=== PATIENT | female | born 1990 | race Caucasian/White ===

== ENCOUNTER 2020-12-17 20:27 | Observation (INO) | payer OTHER, SELFPAY ==
[2020-12-17 21:22] VITALS: BP 142/94; PULSE 110
[2020-12-17 21:30] VITALS: BP 138/88; PULSE 112
[2020-12-17] MEDS: ONDANSETRON INJ 4 MG/2 ML VIAL IV PUSH (21:39)
[2020-12-17] MEDS: LACTATED RINGERS 1,000 ML 125 ML IV CONT (21:39)
[2020-12-17] MEDS: AMPICILLIN 2 GM/NS 100 ML 2 GM/100 ML BAG IVPB (21:41)
[2020-12-17 21:58] LABS: Basophils Percent Auto 0.2 % (0.2-1.2); Eosinophils Absolute Auto 0.1 K/mm3 (0-0.3); Eosinophils Percent Auto 0.4 % (0-4.4); Hematocrit 37.6 % (37.0-47.0); Immature Granulocyte Absolute 0.07 K/mm3 (0.00-0.031); Immature Granulocyte Percent A 0.5 % (0-0.5); Lymphocytes Absolute Auto 2.02 K/mm3 (0.9-3.2); Lymphocytes Percent Auto 14.6 % (18.3-44.2); Mean Corpuscular HGB Conc 34.6 g/dl (32-36); Mean Corpuscular Hemoglobin 30.7 pg (26-34); Mean Corpuscular Volume 88.7 fl (80-100); Mean Platelet Volume 10.5 fl (7.4-10.4); Monocytes Absolute Auto 0.9 K/mm3 (0.1-0.6); Monocytes Percent Auto 6.1 % (2.6-8.5); Neutrophils Absolute Auto 10.8 K/mm3 (1.3-6.7); Neutrophils Percent Auto 78.2 % (45.5-73.1); Platelet Count Result 178 k/mm3 (150-375); Red Blood Count 4.24 M/mm3 (4.2-5.4); White Blood Count 13.8 K/mm3 (4.5-10.0)
[2020-12-17 22:28] LABS: Alanine Aminotransferase 18 U/L (4-35); Albumin Level 4.1 g/dL (3.5-5.1); Alkaline Phosphatase 172 U/L (38-126); Anion Gap 11 mmol/L (8-16); Aspartate Amino Transferase 27 U/L (14-36); Bilirubin,Total 0.4 mg/dL (0.2-1.3); Blood Urea Nitrogen 6 mg/dL (7-17); Calcium 9.2 mg/dL (8.4-10.2); Carbon Dioxide 18 mmol/L (22-30); Chloride 103 mmol/L (98-107); Estimated Glomerular Filt Rate > 60; Glucose 141 mg/dL (65-105); Potassium 3.6 mmol/L (3.4-5.0); Sodium 132 mmol/L (137-145); Uric Acid 4.9 mg/dL (2.5-7.5)
--- NOTE | 2020-12-17 22:35 | LDADM ---
This patient, Hortencia Carbajal, was admitted to Labor/Delivery/Recovery 108 on 12/17/20 at 20:27. Plans for labor, pain management and were discussed with patient. Patient/family oriented to hospital policies and general routines including ID bracelet, bed and alarms, visiting hours, pain management, procedures, bathroom and other care routines, personal items, smoking policy, room service/diet and guest tray routines, security routines, and visiting hours. Patient/Family are encouraged to report perceived risks to care and to ask questions if they do not understand what they are told or what they should do. See OBIX for further documentation.
[2020-12-17 22:43] VITALS: BP 130/88; PULSE 115
[2020-12-17 22:46] VITALS: TEMP 36.4
[2020-12-18] VITALS (7 sets, daily range): BP systolic 94–137; BP diastolic 63–91; PULSE 78–95; TEMP 36.3
[2020-12-18] MEDS: AMPICILLIN 1 GM/NS 50 ML 1 GM/50 ML BAG IVPB ×3 (01:19→11:39)
--- NOTE | 2020-12-18 07:53 | WPDANESEPP ---
Anes - Eval Pre Procedure Procedure: labor epidural Date/Time: 12/18/20 07:53 Surgeon: chris Preop Diagnosis: pain during labor Pre Op Diagnosis: CTX Patient Data Age: 30 Gender: F Height: Weight: Last Vital Signs Temp 36.3 C L 12/18/20 06:54 Pulse 82 12/18/20 07:30 BP 124/83 12/18/20 07:30 Allergies Allergy/AdvReac Type Severity Reaction Status Date / Time No Known Allergies Allergy Verified 12/17/20 12:38 Home Medications Medication Instructions Recorded Confirmed Type prenat.vits,jimmy,aqx-qmvi-oykop 1 tablet PO DAILY 12/17/20 12/17/20 History [ #2] Laboratory Tests 12/17/20 12/17/20 12/17/20 21:50 21:50 21:50 WBC 13.8 K/mm3 H K/mm3 (4.5-10.0) RBC 4.24 M/mm3 M/mm3 (4.2-5.4) Hgb 13.0 g/dL g/dL (12.0-15.0) Hct 37.6 % % (37.0-47.0) MCV 88.7 fl fl (80-100) MCH 30.7 pg pg (26-34) MCHC 34.6 g/dl g/dl (32-36) RDW 13.0 % % (11.5-14.5) Plt Count 178 k/mm3 k/mm3 (150-375) MPV 10.5 fl H fl (7.4-10.4) Immature Gran % (Auto) 0.5 % % (0-0.5) Neut % (Auto) 78.2 % H % (45.5-73.1) Lymph % (Auto) 14.6 % L % (18.3-44.2) [facility] % (Auto) 6.1 % % (2.6-8.5) Eos % (Auto) 0.4 % % (0-4.4) Baso % (Auto) 0.2 % % (0.2-1.2) Lymph # (Auto) 2.02 K/mm3 K/mm3 (0.9-3.2) [facility] # (Auto) 0.9 K/mm3 H K/mm3 (0.1-0.6) Eos # (Auto) 0.1 K/mm3 K/mm3 (0-0.3) Baso # (Auto) 0.0 K/mm3 K/mm3 (0.0-0.1) Abs Immat Gran (auto) 0.07 K/mm3 H K/mm3 (0.00-0.031) Absolute Neuts (auto) 10.8 K/mm3 H K/mm3 (1.3-6.7) Absolute Nucleated RBC 0.0 K/mm3 K/mm3 (0.0-0.012) Nucleated RBC % 0.0 % % (0.0-0.2) Sodium Potassium Chloride Carbon Dioxide Anion Gap BUN Creatinine Estim Creat Clear Calc Estimated GFR Glucose Uric Acid Cancelled Calcium Total Bilirubin AST ALT Alkaline Phosphatase Total Protein Albumin RPR Pending Blood Type Antibody Screen 12/17/20 12/17/20 21:50 21:50 WBC RBC Hgb Hct MCV MCH MCHC RDW Plt Count MPV Immature Gran % (Auto) Neut % (Auto) Lymph % (Auto) [facility] % (Auto) Eos % (Auto) Baso % (Auto) Lymph # (Auto) [facility] # (Auto) Eos # (Auto) Baso # (Auto) Abs Immat Gran (auto) Absolute Neuts (auto) Absolute Nucleated RBC Nucleated RBC % Sodium 132 mmol/L L mmol/L (137-145) Potassium 3.6 mmol/L mmol/L (3.4-5.0) Chloride 103 mmol/L mmol/L (98-107) Carbon Dioxide 18 mmol/L L mmol/L (22-30) Anion Gap 11 mmol/L mmol/L (8-16) BUN 6 mg/dL L mg/dL (7-17) Creatinine 0.50 mg/dL L mg/dL (0.7-1.0) Estim Creat Clear Calc Not Reportable Estimated GFR > 60 (59 - ) Glucose 141 mg/dL H mg/dL (65-105) Uric Acid 4.9 mg/dL mg/dL (2.5-7.5) Calcium 9.2 mg/dL mg/dL (8.4-10.2) Total Bilirubin 0.4 mg/dL mg/dL (0.2-1.3) AST 27 U/L U/L (14-36) ALT 18 U/L U/L (4-35) Alkaline Phosphatase 172 U/L H U/L (38-126) Total Protein 7.0 g/dL g/dL (6.3-8.2) Albumin 4.1 g/dL g/dL (3.5-5.1) RPR Blood Type A Positive Antibody Screen Negative Patient hx anesthesia problems: none Family hx anesthesia problems: none PMFSH Past Medical History Medical History (Updated 12/18/20 @ 07:54 by Destinee Irvin CRNA)
[2020-12-18 10:48] LABS: Rapid Plasma Reagin Non-Reactive (NonReactive)
--- NOTE | 2020-12-18 12:36 | WPDOBADMIT ---
Obstetrics - Admit Note Admission Note: record reviewed. Additions to the history and/or subsequent changes in the physical findings follow. 30 y/o G1 at 36 2/7 weeks here with contractions. Cervix was 1 cm dilated in office yesterday. She had an increase in contractions and came to L&D last night. Cervix changed to 3.5 and she was given ampicillin for GBS unknown status in the . Contractions have decreased subsequently and her cervix has not changed further. AVSS NST reactive TOCO: contractions irregularly now ABD soft, nontender, gravid, vertex EXT nontender Cervix 3-4/50/-2, unchanged. A: IUP at 36 2/7 weeks, not in active labor. P: Home with labor precautions. F/u next week in office.
== END 2020-12-18 13:06 | disposition home or self-care (01) ==
PROVIDERS: Admitting Provider Obstetrics & Gynecology; Visit Provider Obstetrics & Gynecology
DX: O47.03 False labor before 37 completed weeks of gestation, third trimester (principal); Z3A.36 36 weeks gestation of pregnancy
CPT/HCPCS: 36415; 80053; 84550; 85025; 86592; 86850; 86900; 86901; 96361; 96365; 96375; G0378; G0379; J0290; J2405; J7120

== ENCOUNTER 2021-01-05 12:18 | Observation (INO) | payer OTHER, SELFPAY ==
[2021-01-05] VITALS (29 sets, daily range): BP systolic 123–139; BP diastolic 80–109; PULSE 77–141; O2SAT 94–100; BMI 25.0
--- NOTE | 2021-01-05 12:18 | OBADM ---
This patient, Hortencia Carbajal, admitted to the OB room Labor/Delivery/Recovery 107 for observation. Patient/family oriented to hospital policies and general routines including ID bracelet, bed and alarms, visiting hours, pain management, procedures, bathroom and other care routines, personal items, smoking policy, room service/diet, and visiting hours. Patient/Family are encouraged to report perceived risks to care and to ask questions if they do not understand what they are told or what they should do.
[2021-01-05 13:22] LABS: Basophils Percent Auto 0.2 % (0.2-1.2); Eosinophils Percent Auto 0.3 % (0-4.4); Hematocrit 38.8 % (37.0-47.0); Hemoglobin 13.7 g/dL (12.0-15.0); Immature Granulocyte Absolute 0.07 K/mm3 (0.00-0.031); Immature Granulocyte Percent A 0.6 % (0-0.5); Lymphocytes Absolute Auto 1.72 K/mm3 (0.9-3.2); Lymphocytes Percent Auto 13.7 % (18.3-44.2); Mean Corpuscular HGB Conc 35.3 g/dl (32-36); Mean Corpuscular Hemoglobin 30.9 pg (26-34); Mean Corpuscular Volume 87.4 fl (80-100); Mean Platelet Volume 10.7 fl (7.4-10.4); Monocytes Absolute Auto 0.7 K/mm3 (0.1-0.6); Monocytes Percent Auto 5.6 % (2.6-8.5); Neutrophils Percent Auto 79.6 % (45.5-73.1); Platelet Count Result 180 k/mm3 (150-375); Red Blood Count 4.44 M/mm3 (4.2-5.4); White Blood Count 12.5 K/mm3 (4.5-10.0)
[2021-01-05 13:27] LABS: Creatinine Urine 41.7 mg/dL; Total Protein Urine Random 13 mg/dL; Ur Ttl Prot Creatinine Ratio 0.31 mg/mg (0-0.20)
[2021-01-05 13:28] LABS: Add Urine Microscopic? YES; Appearance Urine Clear (Clear); Bacteria Urine Trace /hpf; Bilirubin Urine Negative (Negative); Blood Urine Negative (Negative); Color Urine Straw (Yellow); Glucose Urine UA Negative (Negative); Ketones Urine Trace mg/dL (Negative); Leukocyte Esterase Ur Negative LEU/UL (NEGATIVE); Mucus Urine Rare /lpf; Nitrate Urine Negative (Negative); Protein Urine Negative (Negative); RBC Urine 0-2 /hpf (0-2); Specific Grav Ur 1.008 (1.001-1.035); Urobilinogen Urine Negative mg/dL (<2.0); WBC Urine 0-3 /hpf (0-3)
[2021-01-05 13:34] LABS: Alanine Aminotransferase 14 U/L (4-35); Albumin Level 4.1 g/dL (3.5-5.1); Alkaline Phosphatase 247 U/L (38-126); Anion Gap 11 mmol/L (8-16); Aspartate Amino Transferase 24 U/L (14-36); Bilirubin,Total 0.3 mg/dL (0.2-1.3); Blood Urea Nitrogen 9 mg/dL (7-17); Carbon Dioxide 19 mmol/L (22-30); Chloride 103 mmol/L (98-107); Estimated Glomerular Filt Rate > 60; Glucose 105 mg/dL (65-105); Potassium 4.1 mmol/L (3.4-5.0); Sodium 133 mmol/L (137-145); Uric Acid 5.8 mg/dL (2.5-7.5)
[2021-01-05] MEDS: ACETAMINOPHEN 500 MG TABLET 1000 MG PO (13:59)
--- NOTE | 2021-01-07 07:56 | PM.OBTRLD ---
OB - Triage/Final Diagnosis Visit Information Date of evaluation: 01/05/21 Reason for evaluation: threatened labor Comments/Additional reasons for admission: I have assessed the risk for this patient, Hortencia Carbajal, and determined that she would benefit from observation care. Evaluation Laboratory results: Laboratory Tests 01/05/21 01/05/21 01/05/21 13:04 13:04 13:04 WBC 12.5 H RBC 4.44 Hgb 13.7 Hct 38.8 MCV 87.4 MCH 30.9 MCHC 35.3 RDW 13.0 Plt Count 180 MPV 10.7 H Immature Gran % (Auto) 0.6 H Neut % (Auto) 79.6 H Lymph % (Auto) 13.7 L [place] % (Auto) 5.6 Eos % (Auto) 0.3 Baso % (Auto) 0.2 Lymph # (Auto) 1.72 [place] # (Auto) 0.7 H Eos # (Auto) 0.0 Baso # (Auto) 0.0 Abs Immat Gran (auto) 0.07 H Absolute Neuts (auto) 10.0 H Absolute Nucleated RBC 0.0 Nucleated RBC % 0.0 Sodium 133 L Potassium 4.1 Chloride 103 Carbon Dioxide 19 L Anion Gap 11 BUN 9 Creatinine 0.60 L Estim Creat Clear Calc Not Reportable Estimated GFR > 60 Glucose 105 Uric Acid 5.8 Calcium 9.0 Total Bilirubin 0.3 AST 24 ALT 14 Alkaline Phosphatase 247 H Total Protein 7.0 Albumin 4.1 Urine Color Urine Appearance Urine pH Ur Specific [place] Urine Protein Urine Glucose (UA) Urine Ketones Ur Blood (Man) Urine Nitrate Urine Bilirubin Urine Urobilinogen Ur Leukocyte Esterase Urine RBC Urine WBC Urine Bacteria Urine Mucus U Random Total Protein 13 Urine Creatinine 41.7 Protein/Creat Ratio 2 0.31 H 01/05/21 13:12 WBC RBC Hgb Hct MCV MCH MCHC RDW Plt Count MPV Immature Gran % (Auto) Neut % (Auto) Lymph % (Auto) [place] % (Auto) Eos % (Auto) Baso % (Auto) Lymph # (Auto) [place] # (Auto) Eos # (Auto) Baso # (Auto) Abs Immat Gran (auto) Absolute Neuts (auto) Absolute Nucleated RBC Nucleated RBC % Sodium Potassium Chloride Carbon Dioxide Anion Gap BUN Creatinine Estim Creat Clear Calc Estimated GFR Glucose Uric Acid Calcium Total Bilirubin AST ALT Alkaline Phosphatase Total Protein Albumin Urine Color Straw Urine Appearance Clear Urine pH 6.0 Ur Specific [place] 1.008 Urine Protein Negative Urine Glucose (UA) Negative Urine Ketones Trace Ur Blood (Man) Negative Urine Nitrate Negative Urine Bilirubin Negative Urine Urobilinogen Negative Ur Leukocyte Esterase Negative Urine RBC 0-2 Urine WBC 0-3 Urine Bacteria Trace Urine Mucus Rare U Random Total Protein Urine Creatinine Protein/Creat Ratio 2
== END 2021-01-05 14:55 | disposition home or self-care (01) ==
PROVIDERS: Admitting Provider Student in an Organized Health Care Education/Training Program; Visit Provider Student in an Organized Health Care Education/Training Program
DX: O47.1 False labor at or after 37 completed weeks of gestation (principal); Z3A.38 38 weeks gestation of pregnancy
CPT/HCPCS: 36415; 80053; 81001; 82570; 84156; 84550; 85025; 87086; A9270; G0378; G0379

== ENCOUNTER 2021-01-09 21:30 | Inpatient (IN) | payer OTHER, SELFPAY ==
[2021-01-09 22:00] VITALS: BP 124/81; PULSE 87; TEMP 36.8
[2021-01-09 22:33] LABS: Basophils Percent Auto 0.2 % (0.2-1.2); Eosinophils Absolute Auto 0.1 K/mm3 (0-0.3); Eosinophils Percent Auto 0.6 % (0-4.4); Hematocrit 34.1 % (37.0-47.0); Hemoglobin 11.8 g/dL (12.0-15.0); Immature Granulocyte Absolute 0.03 K/mm3 (0.00-0.031); Immature Granulocyte Percent A 0.3 % (0-0.5); Lymphocytes Percent Auto 20.8 % (18.3-44.2); Mean Corpuscular HGB Conc 34.6 g/dl (32-36); Mean Corpuscular Hemoglobin 29.9 pg (26-34); Mean Corpuscular Volume 86.3 fl (80-100); Mean Platelet Volume 10.7 fl (7.4-10.4); Monocytes Absolute Auto 0.7 K/mm3 (0.1-0.6); Monocytes Percent Auto 6.6 % (2.6-8.5); Neutrophils Absolute Auto 7.2 K/mm3 (1.3-6.7); Neutrophils Percent Auto 71.5 % (45.5-73.1); Platelet Count Result 162 k/mm3 (150-375); Red Blood Count 3.95 M/mm3 (4.2-5.4); Red Cell Distribution Width 12.7 % (11.5-14.5); White Blood Count 10.1 K/mm3 (4.5-10.0)
[2021-01-09 22:34] VITALS: BMI 25.7
--- NOTE | 2021-01-09 22:35 | LDADM ---
This patient, Hortencia Carbajal, was admitted to Labor/Delivery/Recovery 107 on 01/09/21 at 21:30. Plans for labor, pain management and were discussed with patient. Patient/family oriented to hospital policies and general routines including ID bracelet, bed and alarms, visiting hours, pain management, procedures, bathroom and other care routines, personal items, smoking policy, room service/diet and guest tray routines, security routines, and visiting hours. Patient/Family are encouraged to report perceived risks to care and to ask questions if they do not understand what they are told or what they should do. See OBIX for further documentation.
[2021-01-09 22:49] LABS: Alanine Aminotransferase 12 U/L (4-35); Albumin Level 3.5 g/dL (3.5-5.1); Alkaline Phosphatase 213 U/L (38-126); Anion Gap 7 mmol/L (8-16); Aspartate Amino Transferase 24 U/L (14-36); Bilirubin,Total 0.2 mg/dL (0.2-1.3); Blood Urea Nitrogen 9 mg/dL (7-17); Calcium 8.8 mg/dL (8.4-10.2); Carbon Dioxide 21 mmol/L (22-30); Chloride 105 mmol/L (98-107); Estimated CRCL calculation 107 ml/min; Estimated Glomerular Filt Rate > 60; Glucose 126 mg/dL (65-105); Potassium 3.6 mmol/L (3.4-5.0); Sodium 133 mmol/L (137-145)
[2021-01-09 23:22] LABS: Uric Acid 6.2 mg/dL (2.5-7.5)
[2021-01-09 23:30] VITALS: BP 136/90; PULSE 79; TEMP 36.6
[2021-01-10] VITALS (132 sets, daily range): BP systolic 100–141; BP diastolic 50–114; PULSE 54–105; RESP 15–18; TEMP 36.3–36.9; O2SAT 84–100
[2021-01-10] MEDS: fentaNYL CITRATE INJ (*CRX) 100 MCG/2 ML VIAL 50 MCG IV PUSH (02:46)
[2021-01-10] MEDS: LACTATED RINGERS 1,000 ML 125 ML IV CONT ×3 (02:49→05:29)
--- NOTE | 2021-01-10 03:24 | WPDANESEPPF ---
Anes - Initial Pre Proc Eval Procedure: labor epidural Date/Time: 01/10/21 03:24 Surgeon: Franc Nelson MD Pre Op Diagnosis: labor pain Pre Op Diagnosis: Leaking Patient Data Age: 30 Gender: F Height: 1.65 m Weight: 70 kg Last Vital Signs Temp 36.6 C 01/10/21 01:30 Pulse 77 01/10/21 03:22 BP 115/84 01/10/21 03:22 Pulse Ox 100 01/10/21 03:23 Allergies Allergy/AdvReac Type Severity Reaction Status Date / Time No Known Allergies Allergy Verified 12/17/20 12:38 Home Medications Medication Instructions Recorded Confirmed Type prenat.vits,jimmy,[id number] 1 tablet PO DAILY 12/17/20 01/09/21 History Laboratory Tests 01/09/21 01/09/21 01/09/21 22:19 22:19 22:19 WBC 10.1 K/mm3 H K/mm3 (4.5-10.0) RBC 3.95 M/mm3 L M/mm3 (4.2-5.4) Hgb 11.8 g/dL L g/dL (12.0-15.0) Hct 34.1 % L % (37.0-47.0) MCV 86.3 fl fl (80-100) MCH 29.9 pg pg (26-34) MCHC 34.6 g/dl g/dl (32-36) RDW 12.7 % % (11.5-14.5) Plt Count 162 k/mm3 k/mm3 (150-375) MPV 10.7 fl H fl (7.4-10.4) Immature Gran % (Auto) 0.3 % % (0-0.5) Neut % (Auto) 71.5 % % (45.5-73.1) Lymph % (Auto) 20.8 % % (18.3-44.2) [place] % (Auto) 6.6 % % (2.6-8.5) Eos % (Auto) 0.6 % % (0-4.4) Baso % (Auto) 0.2 % % (0.2-1.2) Lymph # (Auto) 2.10 K/mm3 K/mm3 (0.9-3.2) [place] # (Auto) 0.7 K/mm3 H K/mm3 (0.1-0.6) Eos # (Auto) 0.1 K/mm3 K/mm3 (0-0.3) Baso # (Auto) 0.0 K/mm3 K/mm3 (0.0-0.1) Abs Immat Gran (auto) 0.03 K/mm3 K/mm3 (0.00-0.031) Absolute Neuts (auto) 7.2 K/mm3 H K/mm3 (1.3-6.7) Absolute Nucleated RBC 0.0 K/mm3 K/mm3 (0.0-0.012) Nucleated RBC % 0.0 % % (0.0-0.2) Sodium Potassium Chloride Carbon Dioxide Anion Gap BUN Creatinine Estim Creat Clear Calc Estimated GFR Glucose Uric Acid 6.2 mg/dL mg/dL (2.5-7.5) Calcium Total Bilirubin AST ALT Alkaline Phosphatase Total Protein Albumin RPR Pending Blood Type Antibody Screen 01/09/21 01/09/21 22:19 22:19 WBC RBC Hgb Hct MCV MCH MCHC RDW Plt Count MPV Immature Gran % (Auto) Neut % (Auto) Lymph % (Auto) [place] % (Auto) Eos % (Auto) Baso % (Auto) Lymph # (Auto) [place] # (Auto) Eos # (Auto) Baso # (Auto) Abs Immat Gran (auto) Absolute Neuts (auto) Absolute Nucleated RBC Nucleated RBC % Sodium 133 mmol/L L mmol/L (137-145) Potassium 3.6 mmol/L mmol/L (3.4-5.0) Chloride 105 mmol/L mmol/L (98-107) Carbon Dioxide 21 mmol/L L mmol/L (22-30) Anion Gap 7 mmol/L L mmol/L (8-16) BUN 9 mg/dL mg/dL (7-17) Creatinine 0.60 mg/dL L mg/dL (0.7-1.0) Estim Creat Clear Calc 107 ml/min ml/min Estimated GFR > 60 (59 - ) Glucose 126 mg/dL H mg/dL (65-105) Uric Acid Calcium 8.8 mg/dL mg/dL (8.4-10.2) Total Bilirubin 0.2 mg/dL mg/dL (0.2-1.3) AST 24 U/L U/L (14-36) ALT 12 U/L U/L (4-35) Alkaline Phosphatase 213 U/L H U/L (38-126) Total Protein 6.0 g/dL L g/dL (6.3-8.2) Albumin 3.5 g/dL g/dL (3.5-5.1) RPR Blood Type A Positive Antibody Screen Negative Patient hx anesthesia problems: none Family hx anesthesia problems: none [facility] Past Medical History Medical History (Updated 12/18/20 @ 07
[2021-01-10] MEDS: OXYTOCIN 30 UNITS/NS 500 ML 30 UNITS/500 ML BAG IV CONT (07:31)
[2021-01-10 07:50] LABS: Rapid Plasma Reagin Non-Reactive (NonReactive)
--- NOTE | 2021-01-10 08:35 | WPDOBADMIT ---
Obstetrics - Admit Note Admission Note: record reviewed. Additions to the history and/or subsequent changes in the physical findings follow. 30 y/o G1 at 39 4/7 weeks who was originally scheduled for induction of labor this morning. However, she had SROM last evening at 2119, confirmed on admission by the nursing staff. Her labor has progressed without stimulation and she is now comfortable with an epidural. GBS neg. AVSS NST reactive TOCO: contractions every 2-4 min ABD soft, nontender, gravid, vertex EXT nontender Cervix C/100/+2. AROM of forebag with clear fluid. Vertex. A: IUP at 39 4/7 weeks with labor. P: Begin pushing. Anticipate .
--- NOTE | 2021-01-10 10:43 | PM.OBPRVD ---
OB - Delivery Note Procedure Delivery date: 01/10/21 Procedure: Intrapartal events: None Induction method: none Delivery augmentation: pitocin Delivery monitor: external FHT and external uterine Route of delivery: Laceration Description: Perineal - 2nd Degree Delivery repair: vicryl (3-0) Specimen: Yes (cord blood) Quantitative Blood Loss (ml): 190 Anesthesia type: Epidural Disposition: PACU Complications: None Narrative: 30 y/o G1 at 39 4/7 weeks gestation who presented to the hospital after a gush of fluid. SROM was confirmed. She received an epidural for pain control. Her labor progressed and her cervix dilated completely. She pushed with good effort. The second stage of labor was augmented with oxytocin. She delivered the 's head to the perineum, followed by the body. The nose and mouth were bulb suctioned. After a delay, the cord was clamped and cut. The was handed off the field. Cord blood was collected. The placenta delivered spontaneously and was grossly normal in appearance. The usual 3 vessel cord was noted. A second degree midline perineal laceration was sustained. This was reapproximated using 3 0 Vicryl in the usual layered fashion. Excellent hemostasis resulted as did excellent reapproximation of the normal anatomy. Needle and instrument counts were correct. The patient was taken to recovery room in stable condition. The went to the nursery in stable condition. I was present and scrubbed for the entire delivery. Baby Date of : 01/10/21 Time of : 10:24 Weeks of gestation at delivery: 39 Infant gender: Male Weight (pounds): 7 Weight (ounces): 9 presentation: vertex position: Left Occiput Anterior Placenta delivery description: Spontaneous and Normal Configuration cord vessel description: 3 Vessels and Delayed Cord Clamping score one minute: 8 score five minutes: 9
[2021-01-10] MEDS: OXYTOCIN 30 UNITS/NS 500 ML 30 UNITS/500 ML BAG 125 UNITS IV CONT (11:09)
[2021-01-10] MEDS: BENZOCAINE 20% AER SPR (*SP) 56 GM CAN 1 SPRAY TOPICAL (13:02)
[2021-01-10] MEDS: IBUPROFEN 600 MG TABLET PO (13:03)
[2021-01-10] MEDS: WITCH HAZEL 40 PADS 1 PAD TOPICAL (13:03)
--- NOTE | 2021-01-10 14:40 | PC.NURSE ---
Consult with pt., mother states infant was sleepy with on and off for first feeding. Mother states she did more self expression into infant's mouth. Mother has flat nipples with slight invert. Reviewed infant feeding cues, frequencies, duration of feedings, feeding elimination flow sheet, and signs of adequate intake. Demonstrated stimulation techniques to wake for feeding. Assisted with infant to breast. Reviewed positioning/alignment in cross cradle, holding breast in U hold and guided asymmetrical latch on. Infant was eager and was able to latch. Mother reported severe pain, wanting off breast, reporting I can't do this Several attempts to latclh infant, was unable to latch correctly with pain to mother. Offered and explained the nipple shield. Nipple shield provided to mother due to ineffective latch. Instructions given on application and cleaning of shield. Discussed nipple shield precautions and possible complications. Patient able to return demonstration on proper application of shield. Discussed the need to initiate pumping if continues to nurse with the shield. Patient verbalizes understanding. Several attempts made, was unable to latch without causing pain to mother. Latch appeared deep with large amount of areola in. has a vigorous suck. Mother is crying and concerned with feeding. Suggested mother p ump and offer expressed milk. Breast pump provided due to ineffective feeding. Instructions given on breast pump care and usage, pumping schedule, nipple care, and collection and storage of breast milk. Encouraged [id number], breast massage and manual expression to stimulate supply. Pumping log provided and reviewed. Assessed patient for correct flange size, placement and draw. Patient verbalizes and demonstrates understanding of instructions. Both nipples are reddened, nipple care reviewed and lanolin provided. Advised warm moist heat for 10 minutes then use gel pads provided after pumping.
--- NOTE | 2021-01-10 16:45 | PC.NURSE ---
Discussed nipple care, lanolin and gel pad provided and reviewed application.
--- NOTE | 2021-01-10 17:54 | PM.OBDSVD ---
DS: Admitting Diagnosis Admitting Diagnosis Admitting Diagnosis: IUP at 39 4/7 weeks SROM DS: Discharge Diagnosis Discharge Diagnosis (1) (normal spontaneous vaginal delivery): Code(s): O80 - Encounter for full-term uncomplicated delivery Status: Acute OB - DS: Summary OB Procedures : None OB Procedures Intrapartum: Spontaneous Vag Delivery OB Procedures: : None DS: Data Data Completed and Pending Labs on day of discharge: Labs from last 24 hours 01/09/21 01/09/21 01/09/21 22:19 22:19 22:19 WBC RBC Hgb Hct MCV MCH MCHC RDW Plt Count MPV Immature Gran % (Auto) Neut % (Auto) Lymph % (Auto) [place] % (Auto) Eos % (Auto) Baso % (Auto) Lymph # (Auto) [place] # (Auto) Eos # (Auto) Baso # (Auto) Abs Immat Gran (auto) Absolute Neuts (auto) Absolute Nucleated RBC Nucleated RBC % Sodium 133 L Potassium 3.6 Chloride 105 Carbon Dioxide 21 L Anion Gap 7 L BUN 9 Creatinine 0.60 L Estim Creat Clear Calc 107 Estimated GFR > 60 Glucose 126 H Uric Acid Calcium 8.8 Total Bilirubin 0.2 AST 24 ALT 12 Alkaline Phosphatase 213 H Total Protein 6.0 L Albumin 3.5 RPR Non-reactive Blood Type A Positive Antibody Screen Negative 01/09/21 01/09/21 22:19 22:19 WBC 10.1 H RBC 3.95 L Hgb 11.8 L Hct 34.1 L MCV 86.3 MCH 29.9 MCHC 34.6 RDW 12.7 Plt Count 162 MPV 10.7 H Immature Gran % (Auto) 0.3 Neut % (Auto) 71.5 Lymph % (Auto) 20.8 [place] % (Auto) 6.6 Eos % (Auto) 0.6 Baso % (Auto) 0.2 Lymph # (Auto) 2.10 [place] # (Auto) 0.7 H Eos # (Auto) 0.1 Baso # (Auto) 0.0 Abs Immat Gran (auto) 0.03 Absolute Neuts (auto) 7.2 H Absolute Nucleated RBC 0.0 Nucleated RBC % 0.0 Sodium Potassium Chloride Carbon Dioxide Anion Gap BUN Creatinine Estim Creat Clear Calc Estimated GFR Glucose Uric Acid 6.2 Calcium Total Bilirubin AST ALT Alkaline Phosphatase Total Protein Albumin RPR Blood Type Antibody Screen Discharge Plan Discharge Attending physician on discharge: Franc Nelson Discharging Clinician: Franc Nelson Patient Disposition: Home, Self-Care Activity: pelvic rest Diet: regular Discharge Instructions: Call or return if temperature above 100.4? F, increased abdominal pain, increased vaginal bleeding or any new problems. Stand Alone Forms: General Discharge Information Follow-up/Referrals: Franc Nelson MD [Physician] - 6 Weeks Discharge Medications: New ibuprofen 600 mg tablet 600 mg PO Q6H PRN (Reason: cramps) Qty: 30 RF: 0 No Action prenat.vits,jimmy,[id number] Tablet 1 tablet PO DAILY RF: 0 Date of admission: 01/09/21 21:30 Primary Care Provider: PHYSICIAN,ELECTION ASSISTANT Admitting Provider: Franc Nelson Attending physician on admission: Franc Nelson Condition: Stable
[2021-01-11 00:40] VITALS: BP 126/83; PULSE 79; RESP 17; TEMP 36.9
[2021-01-11] MEDS: IBUPROFEN 600 MG TABLET PO ×4 (01:00→20:52)
[2021-01-11 05:00] VITALS: BP 122/79; PULSE 74; RESP 16; TEMP 36.8
[2021-01-11 05:28] LABS: Hematocrit 31.6 % (37.0-47.0); Hemoglobin 10.6 g/dL (12.0-15.0)
[2021-01-11 08:15] VITALS: BP 119/77; PULSE 75; RESP 16; TEMP 36.7; O2SAT 99
--- NOTE | 2021-01-11 08:30 | PC.NURSE ---
Mother called out for assist with feeding. Mother states she attempted a few times during the night, mostly pumping and bottle feeding EBM. Mother is pumping 6-11 mls per session. Demonstrated stimulation techniques to wake infant for feeding, sleepy and making weak attempts. Mother wishes to attempt without shield. Assisted with to breast. Reviewed positioning/alignment in football , holding breast in C hold and guided asymmetrical latch on. was able to latch correctly. nursed weakly with bursts of flutter suckling no swallowing noted. Reviewed signs of a correct latch, effective nursing and suck swallow ratio. Discussed infant is not effective feeding. Mother will supplement 6 mls at bedside and pump. Discussed 's jaundice level and ICP may request formula to be added to increase intake. Mother states she is comfortable and will use formula as needed. Plan is to attempt infant to breast each feeding without shield first, if mot her has discomfort or infant unable to latch, move to shield. If is unable to latch without discomfort with shield, mother will then supplement and pump. Discussed each feeding will dictate plan of action for feeding. Reviewed it may be several days before infant is able to latch correctly or may be next feeding. Stressed nipple care and not allow to nurse with pain.
--- NOTE | 2021-01-11 09:41 | WPDANLDPN2 ---
Anes-Prog Note L&D Date/Time: 01/11/21 09:41 Comfortable throughout: labor and delivery Neuraxial method: epidural Epidural/Spinal procedure site: clean & non-tender Neuro status: Neuro function grossly intact. Cardiovascular status: normal Respiratory status: normal Airway patency: baseline Mental status: baseline Post-Op hydration status: normal Vital Signs: Last Vital Signs Temp 36.7 C 01/11/21 08:15 Pulse 75 01/11/21 08:15 Resp 16 01/11/21 08:15 BP 119/77 01/11/21 08:15 Pulse Ox 99 01/11/21 08:15 Pain score (VAS): 0 Post-procedural complaints: none Patient feedback: Patient satisfied with anesthetic care.
[2021-01-11] MEDS: MULTIVIT/MIN/PREN/FOL AC/IRON TABLET 1 TAB PO (10:07)
--- NOTE | 2021-01-11 17:13 | PM.OBPNVD ---
OB - PN: Subj Subjective Date/time seen: 01/11/21 17:13 Narrative: Pain OK. Would like circumcision for son. OB - PN: Obj Data Labs CBC & Chem 7: 01/11/21 05:02 01/09/21 22:19 Labs: Laboratory Results - last 24 hr 01/11/21 05:02 Hgb 10.6 L Hct 31.6 L OB - PN A/P Plan Comments: A: PPD#1, doing well. P: Routine care. Reviewed circumcision in detail. Exam Psych: Other: AVSS ABD soft, nontender, fundus firm EXT nontender
[2021-01-11 20:45] VITALS: BP 114/76; PULSE 77; RESP 17; TEMP 37.1
[2021-01-11] MEDS: ACETAMINOPHEN 325 MG TABLET 650 MG PO (20:52)
[2021-01-12] MEDS: ACETAMINOPHEN 325 MG TABLET 650 MG PO ×2 (02:56→10:19)
[2021-01-12] MEDS: IBUPROFEN 600 MG TABLET PO ×2 (02:56→10:19)
--- NOTE | 2021-01-12 08:00 | PC.NURSE ---
PT introductions made and plan of care discussed per post , pain management, breast feeding, daily care activities and pending discharge to home. PT verbalized understanding of such care.
[2021-01-12 09:25] VITALS: BP 129/86; PULSE 90; RESP 18; TEMP 36.8; O2SAT 98
[2021-01-12 10:00] VITALS: PULSE 90; RESP 18; O2SAT 98
--- NOTE | 2021-01-12 10:00 | PC.NURSE ---
Patient viewed the discharge video Mother & Baby Care, The First Two Weeks . Patient was given the opportunity and encouraged to ask questions. Patient verbalized understanding of information shared and has been given the mother/baby guide for home reference.
[2021-01-12] MEDS: MULTIVIT/MIN/PREN/FOL AC/IRON TABLET 1 TAB PO (10:27)
--- NOTE | 2021-01-12 11:14 | PM.OBPNVD ---
OB - PN: Subj Subjective Date/time seen: 01/12/21 11:14 Narrative: Pain OK. Would like to go home. OB - PN: Obj Data Labs CBC & Chem 7: 01/11/21 05:02 01/09/21 22:19 OB - PN A/P Plan Comments: A: PPD#2, doing well. P: Home to f/u 6 weeks. Exam Psych: Other: AVSS ABD soft, nontender, fundus firm EXT nontender
--- NOTE | 2021-01-12 13:30 | PC.NURSE ---
PT received discharge instructions per protocol and verbalized understanding of such instructions. PT has no barriers to learning and was instructed on a one to one discussion. Fob also a recipient of such instructions. Mom baby guide and DVD were referenced.
--- NOTE | 2021-01-12 13:52 | PC.NURSE ---
PT discharged to home ambulatory accompanied by both spouse and infant to waiting car. Follow up appts confirmed
[2021-01-14 08:46] VITALS: BP 125/84; PULSE 92; RESP 20; TEMP 36.9; O2SAT 100
== END 2021-01-12 13:52 | disposition home or self-care (01) | DRG 807 ==
LOC: ANHLDR 01-10 12:59 → ANHOB2 01-10 13:36
PROVIDERS: Admitting Provider Student in an Organized Health Care Education/Training Program; Visit Provider Obstetrics & Gynecology
DX: O13.4 Gestational [pregnancy-induced] hypertension without significant proteinuria, complicating childbirth (principal); Z37.0 Single live birth; Z3A.39 39 weeks gestation of pregnancy; O70.1 Second degree perineal laceration during delivery
CPT/HCPCS: 36415; 80053; 84550; 85014; 85018; 85025; 86592; 86850; 86900; 86901; A9270; J2590; J2795; J3010; J7120

== ENCOUNTER 2022-07-24 01:12 | Day surgery (SDC) | payer OTHER, SELFPAY ==
[2022-07-23 14:37] VITALS: BMI 21.6
--- NOTE | 2022-07-24 09:00 | PM.IMHP ---
H&P: HPI History of Present Illness Date/Time: 07/24/22 09:00 Chief Complaint: Miscarriage Narrative: 32 y/o with LMP 05/12/22, giving a due date of 02/16/23. She has newly diagnosed hyperthyroidism and is on methimazole. Ultrasound exam on 07/09 showed a living IUP with appropriate CRL. She has no vaginal bleeding or cramping. She came to the office for a new OB visit on 07/23/22, at 10w2d, and ultrasound showed no embryonic cardiac movement, and CRL only consistent with 8w5d. She desires surgical management. Review of Systems Review of Systems: All systems reviewed & are unremarkable except as noted in HPI and below PMFSH Past Medical History Medical History (Updated 07/24/22 @ 09:07 by Franc Nelson MD) Hyperthyroidism Intrauterine Surgical History Surgical History History of tonsillectomy and adenoidectomy Family History Family History Father Hypertension High cholesterol Grandparent High cholesterol Lung cancer Diabetes mellitus Social History Social History Years smoked: 3 Smoking status: Former smoker Tobacco type: cigarettes Smoking end date: 11/09/14 Additional smoking assessment comments: PREVIOUS [employer] Alcohol intake: never Substance use: never Substance use type: does not use Living arrangements: with family Spiritual care concerns: No Meds Home Medications and Allergies Home Medications Medication Instructions Recorded Confirmed Type No Home Medications 07/23/22 07/23/22 History Allergies Allergy/AdvReac Type Severity Reaction Status Date / Time No Known Allergies Allergy Verified 07/23/22 14:37 Exam Const: Orientation/consciousness: patient oriented x3 Other: Well-developed, well-nourished female in no acute distress. Neck: Thyroid: thyroid normal Lymphatic: no lymphadenopathy noted (in neck, axilla or inguinal nodes) Resp: Effort & Inspection: normal respiratory effort Auscultation: clear to auscultation bilaterally Cardio: Rate: regular rate Rhythm: regular rhythm Heart sounds: S1 normal heart sound present and S2 normal heart sound present GI: Other: ABD: Soft, nontender, nondistended. No guarding or rebound tenderness. No hepatosplenomegaly. : General: Yes no CVA tenderness Other: External genitalia: normal female hair distribution, without lesion. Urethral meatus: no lesion, non prolapsed. Bladder: no mass, nontender Vagina: well-estrogenized, without lesion or discharge. No cystocele or rectocele. Cervix: no lesion or discharge. Uterus: small, anteverted, freely mobile, nontender Adnexa: no mass or tenderness. Anus/perineum: no lesions, nontender Back/Spine/Pelvis: Back: no CVA tenderness Skin: General skin exam: normal color and no rashes or lesions noted Neuro: General: patient oriented x3 Extrem: Other: Extremities: nontender with no edema Psych: Mental Status: mental status grossly normal Affect: normal affect Assessment and Plan Assessment and plan (1) Missed : Code(s): O02.1 - Missed Status: Acute Assessment and Plan: A: Missed spontaneous . P: I offered expectant management vs. surgical, and she prefers the latter. Specifically, I offered a dilation and suction curettage. She understands risks of surgery to include risks of anesthesia, risks of pain, infection, bleeding, blood products, thromboembolic phenomena and damage to adjacent structures such as bowel, bladder, ureters, blood vessels and nerves. She understands all these risks and elects to proceed with surgery.
[2022-07-24] MEDS: ACETAMINOPHEN 500 MG TABLET 1000 MG PO (10:29)
[2022-07-24 10:45] VITALS: BP 113/69; PULSE 70; RESP 16; TEMP 36.8; O2SAT 100
[2022-07-24] MEDS: LACTATED RINGERS 1,000 ML 30 ML IV CONT (10:45)
--- NOTE | 2022-07-24 11:03 | P.PNAN_ITS ---
Anes - Initial Pre Proc Eval Procedure: Operation Date: 07/24/22 12:00 Proposed Procedures p Suction Dilation and Curettage - Franc Nelson MD Date/Time: 07/24/22 11:03 Surgeon: Franc Nelson MD Pre Op Diagnosis: Missed Ab Patient Data Age: 32 Gender: F Height: 1.63 m Weight: 56.4 kg Last Vital Signs Temp 36.8 C 07/24/22 10:45 Pulse 70 07/24/22 10:45 Resp 16 07/24/22 10:45 BP 113/69 07/24/22 10:45 Pulse Ox 100 07/24/22 10:45 O2 Del Method Room Air 07/24/22 10:45 Allergies Allergy/AdvReac Type Severity Reaction Status Date / Time No Known Allergies Allergy Verified 07/24/22 10:54 Home Medications Medication Instructions Recorded Confirmed Type No Home Medications 07/23/22 07/24/22 History Patient hx anesthesia problems: none Family hx anesthesia problems: none Results Review: All pre-operative results and documents have been reviewed as part of the pre- operative evaluation. [facility] Past Medical History Medical History Hyperthyroidism Intrauterine Surgical History Surgical History History of tonsillectomy and adenoidectomy Family History Family History Father Hypertension High cholesterol Grandparent High cholesterol Lung cancer Diabetes mellitus Social History Social History Years smoked: 3 Smoking status: Former smoker Tobacco type: cigarettes Smoking end date: 11/09/14 Additional smoking assessment comments: PREVIOUS [employer] Alcohol intake: never Substance use: never Substance use type: does not use Living arrangements: with family Spiritual care concerns: No Anes - Eval Final PreProcedure Day of Procedure 07/24/22 11:03 Patient weight: normal Heart: regular rate and rhythm Lungs: clear to auscultation Airway: Mallampati scale class II Neurological: alert and oriented Last oral intake: >/= 8 hours ASA classification: II Emergent: no Anesthetic plan: proceed Anesthesia type and monitoring: general GIVS and standard monitoring Results Review: All pre-operative results and documents have been reviewed as part of the pre- operative evaluation. Informed Consent: The patient's anesthetic plan and its attendant risks and benefits were discussed with the patient/family/POA. Questions were solicited and answers provided to the satisfaction of the patient/family/POA.
--- NOTE | 2022-07-24 12:08 | WPDHPUPDATE1 ---
History and Physical Update Update Date/Time: 07/24/22 12:08 History and Physical has been reviewed, including an updated exam of the patient. There are NO changes in the patient's condition. Risks, benefits, and alternatives have been discussed and questions answered. Patient agrees to proceed with procedure.
[2022-07-24] MEDS: LIDOCAINE HCL 1% LOCAL INJ 20 ML VIAL 10 ML INFILTRATE (12:30)
[2022-07-24] MEDS: KETOROLAC 30 MG/ML VIAL (*BKC) IV PUSH (12:31)
--- NOTE | 2022-07-24 12:35 | W.PM.PROC2 ---
Procedure Note - Detailed Date of Procedure 07/24/22 Pre-op Diagnosis Missed SAB Post-op Diagnosis Same Procedure Performed Dilation and suction curettage Surgeon Franc Nelson MD Anesthesia MAC and Local (1% lidocaine) Findings POC noted Description of Procedure The patient was taken to the operating room where she was prepared and draped in the usual sterile fashion in the dorsal lithotomy position. The bladder was drained with a red rubber catheter. A sterile speculum was placed into the vagina. The anterior lip of the cervix was grasped with a single-tooth tenaculum. Ten mL of 1% lidocaine was administered in a paracervical block. The cervix was gently dilated using Hegar dilators until an 8mm dilator could be passed. The 8mm curved tip suction curette was advanced. Suction curettage was performed and products of conception were aspirated. Sharp curettage was then performed until a good uterine cry was noted. A final pass with the suction curette was made. The tenaculum was removed. Hemostasis was excellent. Sponge, lap, needle and instrument counts were correct. The patient was taken to the recovery room in stable condition. I was present and scrubbed for the entire procedure. Estimated Blood Loss 50 Drains No Packing No Pathology Yes (Endometrial curettings) Complications None Condition Stable Disposition PACU
[2022-07-24 12:40] VITALS: BP 106/58; PULSE 55; RESP 14; O2SAT 98
[2022-07-24 13:05] VITALS: BP 108/70; PULSE 55; RESP 14; O2SAT 100
[2022-07-24 13:25] VITALS: BP 116/69; PULSE 52; RESP 16
== END 2022-07-24 13:40 | disposition home or self-care (01) ==
PROVIDERS: Visit Provider Obstetrics & Gynecology
PROC: (CPT 59820; principal; 2022-07-24 12:00)
DX: O02.1 Missed abortion (principal); Z3A.10 10 weeks gestation of pregnancy; Z87.891 Personal history of nicotine dependence
CPT/HCPCS: 59820; 36415; 85461; 88305; A9270; J1885; J2250; J2405; J2590; J2704; J3010; J7120

== ENCOUNTER 2022-07-30 13:51 | Outpatient (CLI) | payer OTHER, SELFPAY ==
[2022-07-30 15:17] LABS: Alanine Aminotransferase 17 U/L (6-35); Albumin Level 4.9 g/dL (3.5-5.1); Alkaline Phosphatase 56 U/L (38-126); Anion Gap 16 mmol/L (8-16); Aspartate Amino Transferase 24 U/L (14-36); Bilirubin,Total 0.3 mg/dL (0.2-1.3); Blood Urea Nitrogen 14 mg/dL (7-17); Calcium 9.2 mg/dL (8.4-10.2); Carbon Dioxide 23 mmol/L (22-30); Chloride 100 mmol/L (98-107); Estimated Glomerular Filt Rate > 60; Glucose 88 mg/dL (65-110); Potassium 3.4 mmol/L (3.4-5.0); Sodium 139 mmol/L (137-145)
[2022-07-30 15:35] LABS: Free T4 Free Thyroxine 1.37 ng/mL (0.78-2.19)
[2022-07-30 15:48] LABS: Thyroid Stimulating Hormone 0.666 uIU/mL (0.465-4.680)
[2022-08-03 04:26] LABS: Thyroid Peroxidase Antibodies <1 IU/mL (<9)
[2022-08-03 13:56] LABS: Thyroid Stimulating Immunoglob <89 % baseline (<140)
[2022-08-04 17:53] LABS: Thyrotropin Receptor Antibody <1.00 IU/L (<=2.00)
== END 2022-07-30 13:52 | disposition home or self-care (01) ==
PROVIDERS: Visit Provider Nurse Practitioner
DX: E05.90 Thyrotoxicosis, unspecified without thyrotoxic crisis or storm (principal)
CPT/HCPCS: 36415; 80053; 83519; 84439; 84443; 84445; 84481; 86376

== ENCOUNTER 2022-08-04 10:03 | Outpatient (CLI) | payer OTHER, SELFPAY ==
--- NOTE | ~2022-08-04 | US_ITS ---
EXAMINATION: US thyroid DATE: 08/04/2022 10:48 INDICATION: Toxic multinodular goiter TECHNIQUE: Multiple ultrasound images of the thyroid were obtained. COMPARISON: None. FINDINGS: The right thyroid lobe measures 5.2 x 1.4 x 1.5 cm. The left thyroid lobe measures 4.9 x 0.8 x 1.6 c m. Several subcentimeter thyroid nodules, 3 on the right and one on the left which are solid or pred ominantly solid, hypoechoic, wider than tall with either smooth or ill-defined margins and without ec hogenic foci (TI-RADS 4, moderately suspicious , FNA if >=1.5 cm, annual followup is >=1 cm). The lar gest on the right measures 1 cm in the remaining 2 on the right measuring 7 mm and the nodule in the left measuring 6 mm. IMPRESSION: 1. Multinodular goiter, none meeting criteria for biopsy at this time. Would recommend annual follow- up for the largest 1 cm TI RADS 4 right thyroid nodule. Reviewed, dictated and finalized at location A. IMPRESSION: 1. Multinodular goiter, none meeting criteria for biopsy at this time. Would re commend annual follow-up for the largest 1 cm TI RADS 4 right thyroid nodule.
== END 2022-08-04 10:04 | disposition home or self-care (01) ==
PROVIDERS: Visit Provider Nurse Practitioner
DX: E05.20 Thyrotoxicosis with toxic multinodular goiter without thyrotoxic crisis or storm (principal)
CPT/HCPCS: 76536

== ENCOUNTER 2022-09-09 12:01 | Outpatient (CLI) | payer OTHER, SELFPAY ==
[2022-09-09 12:34] LABS: Alanine Aminotransferase 18 U/L (6-35); Albumin Level 4.8 g/dL (3.5-5.1); Alkaline Phosphatase 43 U/L (38-126); Anion Gap 10 mmol/L (8-16); Aspartate Amino Transferase 23 U/L (14-36); Bilirubin,Total 0.5 mg/dL (0.2-1.3); Blood Urea Nitrogen 15 mg/dL (7-17); Calcium 8.7 mg/dL (8.4-10.2); Carbon Dioxide 24 mmol/L (22-30); Chloride 102 mmol/L (98-107); Estimated Glomerular Filt Rate > 60; Glucose 73 mg/dL (65-110); Sodium 136 mmol/L (137-145)
[2022-09-09 13:04] LABS: Thyroid Stimulating Hormone 0.507 uIU/mL (0.465-4.680)
[2022-09-09 13:30] LABS: Free T4 Free Thyroxine 0.95 ng/mL (0.78-2.19)
[2022-09-11 14:25] LABS: Thyroid Stimulating Immunoglob <89 % baseline (<140)
[2022-09-12 17:50] LABS: Thyrotropin Receptor Antibody 1.06 IU/L (<=2.00)
[2022-09-13 04:58] LABS: Triiodothyronine T3 Free 3.1 pg/mL (2.3-4.2)
[2022-09-13 05:46] LABS: Thyroid Peroxidase Antibodies <1 IU/mL (<9)
== END 2022-09-09 12:02 | disposition home or self-care (01) ==
PROVIDERS: Visit Provider Nurse Practitioner
DX: E05.90 Thyrotoxicosis, unspecified without thyrotoxic crisis or storm (principal)
CPT/HCPCS: 36415; 80053; 83519; 84439; 84443; 84445; 84481; 86376

== ENCOUNTER 2022-10-22 08:38 | Outpatient (CLI) | payer OTHER, SELFPAY ==
[2022-10-22 09:15] LABS: Alanine Aminotransferase 20 U/L (6-35); Albumin Level 4.8 g/dL (3.5-5.1); Alkaline Phosphatase 47 U/L (38-126); Anion Gap 5 mmol/L (8-16); Aspartate Amino Transferase 24 U/L (14-36); Bilirubin,Total 0.5 mg/dL (0.2-1.3); Blood Urea Nitrogen 13 mg/dL (7-17); Calcium 8.9 mg/dL (8.4-10.2); Carbon Dioxide 29 mmol/L (22-30); Chloride 106 mmol/L (98-107); Estimated Glomerular Filt Rate > 60; Glucose 70 mg/dL (65-110); Potassium 4.1 mmol/L (3.4-5.0); Sodium 140 mmol/L (137-145)
[2022-10-22 09:44] LABS: Thyroid Stimulating Hormone 0.691 uIU/mL (0.465-4.680)
[2022-10-22 09:44] LABS: Free T4 Free Thyroxine 1.05 ng/mL (0.78-2.19)
[2022-10-26 14:23] LABS: Thyrotropin Receptor Antibody <1.00 IU/L (<=2.00)
[2022-10-28 06:04] LABS: Thyroid Peroxidase Antibodies <1 IU/mL (<9)
[2022-10-28 13:39] LABS: Thyroid Stimulating Immunoglob 111 % baseline (<140)
[2022-11-05 20:24] LABS: Triiodothyronine T3 Free 3.1 pg/mL (2.3-4.2)
== END 2022-10-22 08:39 | disposition home or self-care (01) ==
LOC: ANHLAB 08:40
PROVIDERS: Visit Provider Nurse Practitioner
DX: E05.90 Thyrotoxicosis, unspecified without thyrotoxic crisis or storm (principal)
CPT/HCPCS: 36415; 80053; 83519; 84439; 84443; 84445; 84481; 86376

== ENCOUNTER 2022-12-08 08:58 | Outpatient (CLI) | payer OTHER, SELFPAY ==
[2022-12-08 10:22] LABS: Thyroid Stimulating Hormone 0.598 uIU/mL (0.465-4.680)
[2022-12-08 10:35] LABS: Free T4 Free Thyroxine 1.01 ng/mL (0.78-2.19)
[2022-12-08 21:20] LABS: Alanine Aminotransferase 18 U/L (6-35); Albumin Level 4.5 g/dL (3.5-5.1); Alkaline Phosphatase 44 U/L (38-126); Anion Gap 5 mmol/L (8-16); Aspartate Amino Transferase 20 U/L (14-36); Bilirubin,Total 0.5 mg/dL (0.2-1.3); Blood Urea Nitrogen 14 mg/dL (7-17); Calcium 8.9 mg/dL (8.4-10.2); Carbon Dioxide 27 mmol/L (22-30); Chloride 103 mmol/L (98-107); Estimated Glomerular Filt Rate > 60; Glucose 78 mg/dL (65-110); Potassium 4.1 mmol/L (3.4-5.0); Sodium 135 mmol/L (137-145)
[2022-12-11 14:10] LABS: Thyroid Stimulating Immunoglob <89 % baseline (<140)
[2022-12-12 04:23] LABS: DHEA-Sulfate 158 mcg/dL (18-391); Thyroid Peroxidase Antibodies 1 IU/mL (<9)
[2022-12-13 19:59] LABS: Estradiol, Ultrasensitive 3 pg/mL
[2022-12-14 16:13] LABS: Progesterone 9.3 ng/mL (***); Prolactin 10.6 ng/mL (***)
[2022-12-18 10:37] LABS: Testosterone Free 1.7 pg/mL (0.1-6.4); Testosterone Total 24 ng/dL (2-45)
== END 2022-12-08 08:59 | disposition home or self-care (01) ==
LOC: ANHLAB 09:00
PROVIDERS: Visit Provider Internal Medicine Endocrinology, Diabetes & Metabolism
DX: E06.3 Autoimmune thyroiditis (principal); N92.6 Irregular menstruation, unspecified
CPT/HCPCS: 36415; 80053; 82627; 82670; 84144; 84146; 84402; 84403; 84439; 84443; 84445; 84481; 86376

== ENCOUNTER 2022-12-16 08:14 | Outpatient (CLI) | payer OTHER, SELFPAY ==
[2022-12-16 08:49] LABS: Basophils Percent Auto 0.3 % (0.2-1.2); Eosinophils Absolute Auto 0.1 K/mm3 (0-0.3); Eosinophils Percent Auto 1.7 % (0-4.4); Hematocrit 38.2 % (37.0-47.0); Hemoglobin 13.1 g/dL (12.0-15.0); Immature Granulocyte Absolute 0.01 K/mm3 (0.00-0.031); Immature Granulocyte Percent A 0.2 % (0-0.5); Lymphocytes Absolute Auto 1.86 K/mm3 (0.9-3.2); Mean Corpuscular HGB Conc 34.3 g/dl (32-36); Mean Corpuscular Hemoglobin 30.4 pg (26-34); Mean Corpuscular Volume 88.6 fl (80-100); Mean Platelet Volume 9.9 fl (7.4-10.4); Monocytes Absolute Auto 0.5 K/mm3 (0.1-0.6); Monocytes Percent Auto 7.7 % (2.6-8.5); Neutrophils Absolute Auto 3.4 K/mm3 (1.3-6.7); Neutrophils Percent Auto 58.1 % (45.5-73.1); Platelet Count Result 178 k/mm3 (150-375); Red Blood Count 4.31 M/mm3 (4.2-5.4); Red Cell Distribution Width 12.6 % (11.5-14.5); White Blood Count 5.8 K/mm3 (4.5-10.0)
[2022-12-16 08:51] LABS: Appearance Urine Clear (Clear); Bilirubin Urine Negative (Negative); Blood Urine Negative (Negative); Color Urine Yellow (Yellow); Glucose Urine UA Negative (Negative); Ketones Urine Negative (Negative); Leukocyte Esterase Ur 1+ LEU/UL (NEGATIVE); Nitrate Urine Negative (Negative); Protein Urine Negative (Negative); Urobilinogen Urine 0.2 mg/dL (<2.0)
[2022-12-16 08:54] LABS: Bacteria Urine Trace /hpf; Mucus Urine Rare /lpf; RBC Urine 0-2 /hpf (0-2); Squamous Epithelial Cell Urine Rare /hpf (Few); WBC Urine 0-3 /hpf (0-3)
[2022-12-16 08:59] LABS: Add Urine Microscopic? YES
[2022-12-16 09:04] LABS: Cholesterol 182 mg/dL (0-200); HDL Direct 50 mg/dL; Triglycerides 65 mg/dL (<150)
[2022-12-16 09:16] LABS: LDL Cholesterol Direct 91 mg/dL
[2022-12-16 09:42] LABS: Vitamin D 25 Hydroxy 43.8 ng/mL
[2022-12-16 10:18] LABS: Folic Acid > 20.0 ng/mL (2.76->20)
[2022-12-16 11:14] LABS: Iron 101 ug/dL (37-170)
[2022-12-16 11:19] LABS: Percent Iron Saturation 29 % (20-50)
== END 2022-12-16 08:15 | disposition home or self-care (01) ==
LOC: ANHLAB 08:16
PROVIDERS: PCP Nurse Practitioner Family; Visit Provider Nurse Practitioner Family
DX: Z00.00 Encounter for general adult medical examination without abnormal findings (principal); D64.9 Anemia, unspecified; Z13.6 Encounter for screening for cardiovascular disorders; E55.9 Vitamin D deficiency, unspecified
CPT/HCPCS: 36415; 80061; 81001; 82306; 82607; 82728; 82746; 83540; 83550; 85025

== ENCOUNTER 2023-03-17 08:42 | Outpatient (CLI) | payer OTHER, SELFPAY ==
[2023-03-17 09:29] LABS: Alanine Aminotransferase 18 U/L (6-35); Albumin Level 4.3 g/dL (3.5-5.1); Alkaline Phosphatase 36 U/L (38-126); Anion Gap 5 mmol/L (8-16); Aspartate Amino Transferase 21 U/L (14-36); Bilirubin,Total 0.6 mg/dL (0.2-1.3); Blood Urea Nitrogen 15 mg/dL (7-17); Calcium 8.5 mg/dL (8.4-10.2); Carbon Dioxide 28 mmol/L (22-30); Chloride 104 mmol/L (98-107); Estimated Glomerular Filt Rate > 60; Glucose 72 mg/dL (65-110); Potassium 3.8 mmol/L (3.4-5.0); Sodium 137 mmol/L (137-145)
[2023-03-17 09:56] LABS: Thyroid Stimulating Hormone 0.736 uIU/mL (0.465-4.680)
[2023-03-17 10:20] LABS: Free T4 Free Thyroxine 1.18 ng/mL (0.78-2.19)
[2023-03-20 14:19] LABS: Thyroid Stimulating Immunoglob <89 % baseline (<140)
[2023-03-20 19:43] LABS: Thyroid Peroxidase Antibodies <1 IU/mL (<9)
[2023-03-21 04:44] LABS: Triiodothyronine T3 Free 3.5 pg/mL (2.3-4.2)
== END 2023-03-17 08:43 | disposition home or self-care (01) ==
LOC: ANHLAB 08:44
PROVIDERS: PCP Nurse Practitioner Family; Visit Provider Internal Medicine Endocrinology, Diabetes & Metabolism
DX: E06.3 Autoimmune thyroiditis (principal)
CPT/HCPCS: 36415; 80053; 84439; 84443; 84445; 84481; 86376